=== PATIENT | female | born 2000 | race Caucasian/White ===

== ENCOUNTER 2023-02-25 14:38 | Emergency (ER) | payer MEDICAID ==
[~2023-02-25] VITALS: Ht 147.3 cm; Wt 63.5 kg
[2023-02-25 14:54] VITALS: TEMP 98.7; O2SAT 100
[2023-02-25 14:57] VITALS: PULSE 83
[2023-02-25] MEDS ORDERED: KETOROLAC 60MG/2ML VIAL IM ONE (17:00)
[2023-02-25] MEDS ORDERED: LIDOCAINE 5% PATCH TOP SCH (17:00)
[2023-02-25] MEDS ORDERED: NAPR-1129 MT (17:11)
[2023-02-25] MEDS ORDERED: AMOX-494 MT (17:11)
[2023-02-25] MEDS ORDERED: CYCL10TA21 MT (17:12)
[2023-02-25 17:40] VITALS: BP 139/82; RESP 18
== END 2023-02-25 18:21 | disposition home or self-care (01) ==
LOC: ER 14:38
DX: J02.9 Acute pharyngitis, unspecified (principal); M54.2 Cervicalgia
CPT/HCPCS: 99283; 87430; 87070; 96372; J1885